=== PATIENT | male | born 1965 | race American Indian/Alaskan Native ===

== ENCOUNTER 2016-06-02 11:52 | Emergency (ER) | payer SELFPAY ==
[2016-06-02 12:14] VITALS: BP 95/59
--- NOTE | 2016-06-02 12:32 | Emergency Department Report ---
Chief Complaint: Hyperglycemia Stated Complaint: BLOOD SUGAR Time Seen by Provider: 06/02/16 12:30 - HPI History of Present Illness: patient is a 50 y/o male with h/o type 2 diabetes who presents due to fatigue and lightheadedness x 4 days. - ROS Review of Systems: patient denies any fever, chills, chest pain or SOB - Exam Vital Signs: Vital Signs 06/02/16 12:08 Temperature 98.4 F Pulse Rate 107 H Respiratory 18 Rate Blood Pressure 95/59 O2 Sat by Pulse 99 Oximetry Physical Exam: nad MSE screening note: Focused history and physical exam performed. Due to findings the following was ordered:ABD PAIN PROTOCOLS ED Disposition for MSE Condition: Stable
[2016-06-02 13:04] LABS: Basophils % (Auto) 0.6 % (0.0-1.8); Eosinophils % (Auto) 0.8 % (0.0-4.3); Hematocrit 45.2 % (35.5-45.6); Mean Corpuscular HGB Conc 33 % (32-34); Mean Corpuscular Hemoglobin 27 pg (28-32); Mean Corpuscular Volume 80 fl (84-94); Platelet Count 188 K/mm3 (140-440); Red Blood Count 5.63 M/mm3 (3.65-5.03); Red Cell Distribution Width 14.2 % (13.2-15.2)
[2016-06-02 13:25] LABS: Alanine Aminotransferase 16 units/L (7-56); Albumin 3.8 g/dL (3.9-5); Albumin/Globulin Ratio 1.2 %; Alkaline Phosphatase 92 units/L (35-129); Anion Gap 22 mmol/L; BUN/Creatinine Ratio 14.61; Bilirubin,Total 0.2 mg/dL (0.1-1.2); Blood Urea Nitrogen 19 mg/dL (9-20); Calcium 9.1 mg/dL (8.4-10.2); Carbon Dioxide 22 mmol/L (22-30); Chloride 96.3 mmol/L (98-107); Glucose 344 mg/dL (75-100); Potassium 4.3 mmol/L (3.6-5.0); Sodium 136 mmol/L (137-145)
--- NOTE | 2016-06-02 21:27 | ED Elopement Review ---
ED Pt Elopement review - Results review Lab results: Laboratory Tests 06/02/16 06/02/16 06/02/16 12:07 12:46 12:46 WBC 7.0 RBC 5.63 H Hgb 15.0 Hct 45.2 MCV 80 L MCH 27 L MCHC 33 RDW 14.2 Plt Count 188 Lymph % (Auto) 22.8 [place] % (Auto) 7.9 H Eos % (Auto) 0.8 Baso % (Auto) 0.6 Lymph # 1.6 [place] # 0.5 Eos # 0.1 Baso # 0.0 Seg Neutrophils % 67.9 Seg Neutrophils # 4.7 Sodium 136 L Potassium 4.3 Chloride 96.3 L Carbon Dioxide 22 Anion Gap 22 BUN 19 Creatinine 1.3 Estimated GFR > 60 BUN/Creatinine Ratio 14.61 Glucose 344 H POC Glucose 320 H Calcium 9.1 Total Bilirubin 0.2 AST 9 ALT 16 Alkaline Phosphatase 92 Troponin T 0.022 Total Protein 7.0 Albumin 3.8 L Albumin/Globulin Ratio 1.2 - Call Back decision Pt Call Back Decision: No action required
== END 2016-06-02 13:00 | disposition left against medical advice (07) ==
LOC: ED 11:52
DX: E11.65 Type 2 diabetes mellitus with hyperglycemia (principal); R53.83 Other fatigue; R42 Dizziness and giddiness; Z53.21 Procedure and treatment not carried out due to patient leaving prior to being seen by health care provider
CPT/HCPCS: 36415; 80048; 80053; 82962; 84484; 85025